=== PATIENT | female | born 1940 | race Caucasian/White ===

== ENCOUNTER 2017-02-19 09:38 | Emergency (ER) | payer MEDICARE ==
[2017-02-19 10:39] LABS: HEMOGLOBIN 13.2 gm/dl (12.3-15.3); RED BLOOD COUNT 4.58 M/UL (4.00-5.10); WHITE BLOOD COUNT 12.6 K/UL (4.5-11.0)
[2017-03-07] MEDS ORDERED: LEVOXYL100 MCG PO (07:56)
[2017-03-07] MEDS ORDERED: GABAPENTIN100 MG PO (07:56)
[2017-03-07] MEDS ORDERED: MOBIC7.5 MG PO (07:56)
[2017-03-07] MEDS ORDERED: METOPROLOL SUCC25 MG PO (07:57)
[2017-03-07] MEDS ORDERED: ASPIR 8181 MG PO (07:59)
[2017-03-07] MEDS ORDERED: HYDROCODON-ACE1 EAC2 PO (07:59)
[2017-03-07] MEDS ORDERED: KLONOPIN TAB 00.5 MG PO (07:59)
== END 2017-02-19 13:51 | disposition home or self-care (01) ==
LOC: ER1 09:38
PROVIDERS: Emergency Medicine
DX: K85.00 Idiopathic acute pancreatitis without necrosis or infection (principal); I10 Essential (primary) hypertension; E03.9 Hypothyroidism, unspecified; M19.90 Unspecified osteoarthritis, unspecified site; Z90.49 Acquired absence of other specified parts of digestive tract; Z87.891 Personal history of nicotine dependence; Z88.8 Allergy status to other drugs, medicaments and biological substances; Z79.82 Long term (current) use of aspirin; Z79.899 Other long term (current) drug therapy; Z95.1 Presence of aortocoronary bypass graft
CPT/HCPCS: 36415; 71250; 80053; 81001; 82150; 82550; 82553; 83690; 83874; 84484; 85025; 87086; 99284

== ENCOUNTER → 2017-03-05 | Outpatient (CLI) | payer MEDICARE ==
[~2017-03-05] MED LIST: ASPIR 8181 MG PO; GABAPENTIN100 MG PO; HYDROCODON-ACE1 EAC2 PO; KLONOPIN TAB 00.5 MG PO; LEVOXYL100 MCG PO; METOPROLOL SUCC25 MG PO; MOBIC7.5 MG PO
== END ==
LOC: MRI 13:15
DX: K85.90 Acute pancreatitis without necrosis or infection, unspecified (principal); K83.8 Other specified diseases of biliary tract
CPT/HCPCS: 74181

== ENCOUNTER → 2017-03-07 | Day surgery (SDC) | payer MEDICARE | END | disposition home or self-care (01) | LOC: OR 07:21 | PROVIDERS: Internal Medicine Gastroenterology | PROC: 0DB68ZX Excision of Stomach, Via Natural or Artificial Opening Endoscopic, Diagnostic (ICD-10-PCS; principal; 2017-03-07 13:00) | DX: K29.50 Unspecified chronic gastritis without bleeding (principal); B96.81 Helicobacter pylori [H. pylori] as the cause of diseases classified elsewhere; I10 Essential (primary) hypertension; K21.9 Gastro-esophageal reflux disease without esophagitis; M19.90 Unspecified osteoarthritis, unspecified site; Z85.828 Personal history of other malignant neoplasm of skin; Z98.890 Other specified postprocedural states | CPT/HCPCS: J2250; J3010; J7030 ==

== ENCOUNTER → 2017-08-12 | Outpatient (CLI) | payer MEDICARE | LOC: MAMO 10:21 | DX: Z12.31 Encounter for screening mammogram for malignant neoplasm of breast (principal); Z90.710 Acquired absence of both cervix and uterus | CPT/HCPCS: G0202 ==

== ENCOUNTER → 2021-04-05 | Outpatient (CLI) | payer MEDICARE ==
[~2021-04-05] MED LIST changes: +ANTIVERT 12.512.5 MG PO; +AUGMENTIN 875-1 EACH PO; +ELIQUIS2.5 MG PO; +GINKGO60 MG PO; +HARD NAILS2500 MCG PO; +LOPRESSOR 25 MG25 MG PO; +MEDROL4 MG PO; +MOBIC15 MG PO; +MULTI-VITAMIN1 EACH PO; +NORCO 5-325 TA1 EACH PO; +NORCO 7.5-3251 EACH PO; +OMNICEF 300 MG300 MG PO; +VITAMIN B COMP1 EACH PO; +VITAMIN B-1250 MCG PO; +VITAMIN C1000 MG PO; +ZOFRAN ODT 4 MG4 MG PO
== END ==
LOC: EXRD 09:26
DX: N18.30 Chronic kidney disease, stage 3 unspecified (principal); N27.1 Small kidney, bilateral
CPT/HCPCS: 76775

== ENCOUNTER → 2021-09-25 | Outpatient (CLI) | payer MEDICARE | LOC: MAMO 15:17 | DX: Z12.31 Encounter for screening mammogram for malignant neoplasm of breast (principal) | CPT/HCPCS: 77063; 77067 ==

== ENCOUNTER → 2021-09-27 | Outpatient (CLI) | payer MEDICARE | LOC: RT 12:02 | DX: I25.10 Atherosclerotic heart disease of native coronary artery without angina pectoris (principal); R94.31 Abnormal electrocardiogram [ECG] [EKG] | CPT/HCPCS: 93005 ==

== ENCOUNTER → 2021-10-12 | Outpatient (CLI) | payer MEDICARE | LOC: KOH-I 10-11 11:15 | DX: M54.50 Low back pain, unspecified (principal); M51.16 Intervertebral disc disorders with radiculopathy, lumbar region; M47.26 Other spondylosis with radiculopathy, lumbar region; M47.817 Spondylosis without myelopathy or radiculopathy, lumbosacral region | CPT/HCPCS: 72148 ==

== ENCOUNTER → 2021-10-12 | Outpatient (CLI) | payer MEDICARE | LOC: EXRD 12:44 | DX: M81.0 Age-related osteoporosis without current pathological fracture (principal) | CPT/HCPCS: 77080 ==